=== PATIENT | male | born 1985 | race African-American/Black ===

== ENCOUNTER 2017-07-11 15:00 | Emergency (ER) | payer MEDICAID ==
[~2017-07-11] VITALS: Ht 188 cm; Wt 70.0 kg
[2017-07-11] MEDS ORDERED: TRAMADOL 50MG TABLET PO ONE (18:00)
[2017-07-11] MEDS ORDERED: OXYCODONE HCL/ACETAMINOPHEN 5/325MG TABLET PO ONE (18:00)
[2017-07-11] MEDS ORDERED: KETOROLAC 60MG/2ML VIAL IM ONE (18:15)
[2017-07-11 18:36] VITALS: BP 122/75
== END 2017-07-11 18:53 | disposition home or self-care (01) ==
LOC: ER 16:14
DX: M54.2 Cervicalgia (principal)
CPT/HCPCS: 72125; 96372; 99284; J1885; Z7610